=== PATIENT | male | born 1950 | race Caucasian/White ===

== ENCOUNTER 2018-01-27 06:10 | Emergency (ER) | payer OTHER ==
--- NOTE | 2018-01-27 06:56 | EDPHY ---
H & P Stated Complaint: SOB, "sinusitis" Time Seen by Provider: 01/27/18 06:40 HPI/ROS: Chief Complaint: Shortness of breath HPI: A 67 year old male with a history of obstructive sleep apnea. He arrived from [place] yesterday. He will be here for 90 days working on a project. He misplaced 1 part of his sleep apnea machine was unable to use it last night. He states he has had sensation of shortness of breath and not be able to get enough air. He is unable to sleep last night. He also has a history of chronic sinusitis and uses Afrin type nasal spray every day. No fevers or chills. No chest pain. No palpitations. No leg pain or swelling. No nausea or vomiting. ROS: 10 point Review of Systems is negative except as noted in the HPI. PMH: Sleep apnea, sinusitis Social History: No smoking, no alcohol, no recreational drug use Family History: non-contributory Physical Exam: Gen: Awake, Alert, No Distress HEENT: Nose: no rhinorrhea Eyes: PERRLA, EOMI Mouth: Moist mucosa Neck: Supple, no JVD Chest: nontender, lungs clear to auscultation Heart: S1, S2 normal, no murmur Abd: Soft, non-tender, no guarding Back: no CVA tenderness, no midline tenderness Ext: no edema, non-tender Skin: no rash Neuro: CN II-XII intact, Sensation grossly intact, Strength 5/5 in bilateral upper and lower extremities - Personal History Current Tetanus Diphtheria and Acellular Pertussis (TDAP): No - Medical/Surgical History Hx Asthma: Yes Hx Chronic Respiratory Disease: No Hx Diabetes: No Hx Cardiac Disease: No Hx Renal Disease: No Hx Cirrhosis: No Hx Alcoholism: No Hx HIV/AIDS: No Hx Splenectomy or Spleen Trauma: No Other PMH: sleep apnea - Social History Smoking Status: Never smoked Constitutional: Initial Vital Signs Temperature (C) 36.7 C 01/27/18 06:16 Heart Rate 63 01/27/18 06:16 Respiratory Rate 20 01/27/18 06:16 Blood Pressure 176/119 H 01/27/18 06:16 O2 Sat (%) 95 01/27/18 06:16 O2 Delivery Mode Room Air Allergies/Adverse Reactions: No Known Allergies Allergy (Unverified 01/27/18 06:14) Home Medications: Medication Instructions Recorded Fluticasone Nasal [Flonase Nasal 2 sprays NASAL DAILY #1 mdi 01/27/18 Joiner (RX)] Medical Decision Making ED Course/Re-evaluation: 67[place]year[place] a [place] of [place] ap[place] who was unable to use his BiPAP machine. He is complaining of being unable to sleep last night with shortness of breath. I think this is a combination of his sleep apnea and altitude. His lungs are completely clear on examination. He is satting 95% on room air. He is freaking in full sentences no distress. Plan will be to discharge with him continuing his CPAP at home. I have also advised he discontinue using the Afrin in he start using Flonase every day. Will refer him for outpatient follow-up as he will be here for 3 months working on a project. There is no evidence of acute pulmonary embolism, no infectious process. No cardiac process at this time. Departure - Departure Disposition: Home, Routine, Self-Care Clinical Impression: Sleep apnea, High altitude dyspnea Condition: Good Instructions: Sleep Apnea (DC), Shortness of Breath (ED) Additional Instructions: I think you will feel better if you are able to use your functioning CPAP machine tonight. I would discontinue using Afrin and instead switch to Flonase nasal spray to treat your sinus symptoms. I also believe that your symptoms are secondary to [place]. I have referred you for primary care follow-up. Return emergency depart for worsening shortness of breath, chest pain, palpitations, or any other concerns. Referrals: Shagufta Tang MD [Medical Doctor] - As per Instructions Prescriptions: Fluticasone Nasal [Flonase Nasal Joiner (RX)] 2 sprays NASAL DAILY #1 mdi
[2018-01-27 07:34] VITALS: BP 123/62
== END 2018-01-27 07:24 | disposition home or self-care (01) ==
DX: G47.30 Sleep apnea, unspecified (principal); G47.32 High altitude periodic breathing